=== PATIENT | female | born 1940 | race Caucasian/White ===

== ENCOUNTER 2020-12-28 11:58 | Day surgery (SDC) | payer MEDICARE, BC ==
[~2020-12-28] VITALS: Ht 162.6 cm; Wt 56.2 kg
[2020-12-28] MEDS ORDERED: SERT50TA28 PO (12:50)
[2020-12-28] MEDS ORDERED: METO25TA35 PO (12:50)
[2020-12-28] MEDS ORDERED: LATA7.5D EACHEYE (12:50)
[2020-12-28] MEDS ORDERED: AMIO400T5 PO (12:50)
[2020-12-28] MEDS ORDERED: PANT40TA6 PO (12:50)
[2020-12-28] MEDS ORDERED: CETIRIZINE PO (12:50)
[2020-12-28] MEDS ORDERED: CHLORHEXIDINE 15 ML UDC MM ONE (13:00)
[2020-12-28] MEDS ORDERED: PLEASE ENTER HEIGHT AND WEIGHT MC SCH (13:00)
[2020-12-28] MEDS ORDERED: LACTATED RINGERS 1,000 ML IV SCH (13:00)
[2020-12-28 13:05] VITALS: BP 120/73
[2020-12-28] MEDS ORDERED: DIPH25TA65 PO (13:05)
[2020-12-28] MEDS ORDERED: ELIQUIS PO (13:05)
[2020-12-28 13:12] LABS: BASOPHILS % (AUTO) 1 % (0-1); EOSINOPHILS % (AUTO) 3 % (1-7); LYMPHOCYTES % (AUTO) 7 % (22-44); MEAN CORPUSCULAR HEMOGLOBIN 30.5 pg (27.0-34.8); MEAN CORPUSCULAR HGB CONC 31.7 g/dL (32.4-35.8); MEAN PLATELET VOLUME 7.8 fL (7.4-10.4); MONOCYTES % (AUTO) 4 % (2-9); NEUTROPHILS % (AUTO) 86 % (42-75); PLATELET COUNT 433 x10^3/uL (130-400); RED BLOOD COUNT 3.46 x10^6/uL (3.82-5.3); RED CELL DISTRIBUTION WIDTH 16.1 % (9.6-15.2)
[2020-12-28 13:19] LABS: ANION GAP 10 mmol/L (5-15); CALCIUM 9.3 mg/dL (8.5-10.1); CHLORIDE 117 mmol/L (98-107)
[2020-12-28 13:25] LABS: MD SCAN
[2020-12-28] MEDS ORDERED: DEXAMETHASONE 4 MG/ML, 1ML ONE (13:56)
[2020-12-28] MEDS ORDERED: PROPOFOL 10 MG/ML, 20ML ONE (13:56)
[2020-12-28] MEDS ORDERED: CEFAZOLIN 1,000 MG ONE (13:56)
[2020-12-28] MEDS ORDERED: ONDANSETRON 2MG/ML, 2ML ONE (13:56)
[2020-12-28] MEDS ORDERED: FENTANYL PF 100 MCG/2ML ONE (13:59)
[2020-12-28] MEDS ORDERED: OMNIPAQUE 350 MG/ML, 50 ML BOTTLE ONE (14:08)
[2020-12-28] MEDS ORDERED: ONDANSETRON 2MG/ML, 2ML IVPush PRN (14:30)
[2020-12-28] MEDS ORDERED: PROMETHAZINE 25 MG/ML, 1ML IVPush PRN (14:30)
[2020-12-28] MEDS ORDERED: MEPERIDINE/PF 25MG/0.5ML IVPush PRN (14:30)
[2020-12-28] MEDS ORDERED: FENTANYL PF 100 MCG/2ML IV PRN (14:30)
[2020-12-28] MEDS ORDERED: EPHEDRINE 50 MG/ML, 1ML ONE (16:32)
== END 2020-12-28 17:45 | disposition home or self-care (01) ==
LOC: OUT 11:58
PROVIDERS: ATTEND Urology
DX: T83.192A Other mechanical complication of indwelling ureteral stent, initial encounter (principal); N20.2 Calculus of kidney with calculus of ureter; N18.9 Chronic kidney disease, unspecified; F32.9 Major depressive disorder, single episode, unspecified; I48.91 Unspecified atrial fibrillation; Z20.822 Contact with and (suspected) exposure to COVID-19; Z79.01 Long term (current) use of anticoagulants; Z79.899 Other long term (current) drug therapy; Z88.8 Allergy status to other drugs, medicaments and biological substances; Y83.8 Other surgical procedures as the cause of abnormal reaction of the patient, or of later complication, without mention of misadventure at the time of the procedure
CPT/HCPCS: 36415; 52353; 52356; 74018; 80048; 85025; 87635; 93005; C1769; C2617; J0690; J1100; J2405; J2704; J3010; 76000; Q9967